=== PATIENT | female | born 1990 | race Caucasian/White ===

== ENCOUNTER 2017-04-14 08:04 | Inpatient (IN) | payer OTHER ==
[~2017-04-14] VITALS: Ht 175.3 cm; Wt 136.1 kg
--- NOTE | ~2017-04-14 | PN ---
Unit #: [id number] #: [id number] Patient: DANIELLA BRANDON [id number] [facility] [address] [place] [address] [id number] Efren MR#: [id number] NAME: DANIELLA BRANDON. ROOM: [facility] Age: 27 Sex: F Admission Date: 04/14/2017 : 1990 Attending Physician: Tam Sesay M.D. Admitting Physician: Tam Sesay M.D. Primary Care Physician: Kiley Leonard PROGRESS NOTES DATE 04/15/2017 DISCUSSION The patient remains dysphoric and flat and continues to endorse helplessness and suicidal ideation. She states that she will be essentially homeless upon discharge from the hospital. I have spoken with the patient regarding realistic expectations of inpatient care particularly regarding realistic expectations of what this facility can and cannot provide with regards to assistance with disposition. We continue current medications and will attempt to transfer the patient to the [address] [place] [address] unit if possible. Dictated by... Tam Sesay M.D. CB/oz TD: 04/15/2017 15:09 JOB #: [id number] [facility] PROGRESS NOTES Page 1 of 1 X Tam Sesay MD X PROGRESS NOTE
--- NOTE | ~2017-04-14 | PN ---
Unit #: [id number] #: [id number] Patient: DANIELLA BRANDON [id number] [facility] [address] [place] [address] [id number] Efren MR#: [id number] NAME: DANIELLA BRANDON. ROOM: 63 Age: 27 Sex: F Admission Date: 04/14/2017 : 1990 Attending Physician: Tam Sesay M.D. Admitting Physician: Tam Sesay M.D. Primary Care Physician: Kiley Leonard PROGRESS NOTES DATE 04/17/2017 DISCUSSION The patient has tolerated initiation of Abilify without complaint. She remains dysphoric and continues to endorse positive suicidal ideation and hopeless when seen today. I have spoken with the patient today regarding her need to increase her participation within the therapeutic milieu to this then she agrees to attend a sabianist service later today. Dictated by... Tam Sesay M.D. CB/leticia TD: 04/17/2017 22:13 JOB #: [id number] [facility] PROGRESS NOTES Page 1 of 1 X Tam Sesay MD X PROGRESS NOTE
--- NOTE | ~2017-04-14 | PN ---
Unit #: [id number] #: [id number] Patient: DANIELLA BRANDON [id number] [facility] [address] [place] [address] [id number] I MR#: [id number] NAME: DANIELLA BRANDON ROOM: 63 Age: 27 Sex: F Admission Date: 04/14/2017 : 1990 Attending Physician: Tam Sesay M.D. Admitting Physician: Tam Sesay M.D. Primary Care Physician: Kiley Leonard PROGRESS NOTES DATE 04/19/2017 DISCUSSION The patient is a bit brighter today. She is active within the therapeutic milieu and is reporting reduction in suicidal ideation. We have discussed a realistic expectations of inpatient care. Dictated by... Baldomero Davalos TD: 04/19/2017 12:42 JOB #: [id number] [facility] PROGRESS NOTES Page 1 of 1 X Tam Sesay MD X PROGRESS NOTE
--- NOTE | ~2017-04-14 | PA ---
Unit #: [id number] #: [id number] Patient: DANIELLA BRANDON [id number] [place] [address] [id number] I MR#: [id number] NAME: DANIELLA BRANDON ROOM: [facility] Age: 27 Sex: F Admission Date: 04/14/2017 : 1990 Date of Assessment: 04/14/2017 Attending Physician: Tam Sesay M.D. Admitting Physician: Tam Sesay M.D. Primary Care Physician: Tony Adair D.O. PSYCHIATRIC ASSESSMENT IDENTIFYING INFORMATION The patient is a 27-year-old white female admitted in transfer from [facility] after the patient had reportedly taken an overdose. CHIEF COMPLAINT None given. INFORMANT Patient, reliability is fair. HISTORY OF PRESENT ILLNESS The patient is a 27-year-old white female who reports that she was just discharged from [facility] 2 days prior to this admission. The patient reports that she had taken an overdose of 800 mg ibuprofen that was in a suicide attempt. The patient reports no specific stressor which led to this episode. The patient states that she lives with a roommate at [facility] [place]. She is not presently employed. The patient is originally from [place] but came to [place] at the age of 18 to enter the [employer] Program in [place]. She has remained in the [place] area since and has little contact with her family at this point. The patient reports that she is followed at [facility], and her current medications include Zoloft, Topamax, Doxepin, and Trileptal. The patient today continues to endorse hopelessness and suicidal ideation. She denies any homicidal ideation. She denies any psychotic symptoms. She denies any history of substance abuse related issues. PAST PSYCHIATRIC HISTORY As above. The patient has a history of multiple previous psychiatric hospitalizations the last of which ended on Tuesday of this week. PAST MEDICAL HISTORY This patient is morbidly obese and suffers from asthma. MEDICATIONS Albuterol, Trileptal, doxepin, Topamax, and Zoloft. ALLERGIES None. FAMILY HISTORY The patient's father who is an alcoholic was a "paranoid schizophrenic." SOCIAL HISTORY Unit #: [id number] #: [id number] Patient: DANIELLA BRANDON The patient lives with a roommate. She is not presently employed. She reports no use of psychoactive substances. MENTAL STATUS EXAMINATION Examination at this time reveals the patient to be a morbidly obese somewhat masculine-appearing female appearing her stated age. She is in no apparent physical distress at the time of examination. She is awake, alert, and oriented in all spheres. Her mood is dysphoric, her affect blunted. Speech is generally well-coherent. There are no gross deficits in memory or cognition noted. Intelligence is judged to be in the average range based on fund of knowledge. The patient is cooperative throughout the interview. She is currently endorsing positive suicidal ideation. She denies homicidal ideation. She denies any psychotic symptoms. Her judgment and insight appear to be somewhat impaired. ASSETS AND LIABILITIES The patient's assets are to be assessed. Liabilities: Lack of resources. DIAGNOSTIC IMPRESSION 1. Dysthymic disorder. 2. Borderline personality disorder. 3. Morbid obesity. 4. Asthma. TREATMENT PLAN The patient remains hospitalized for safety and stabilization. We will continue previously prescribed medications, and we will consider possible augmentation strategies. Given the patient's recent overdose, I will not introduce any new medications as she is quite groggy at this point. Additional medications to be considered would be second-generation antipsychotic. Doxepin would be discontinued given the patient's propensity for overdose and the dangerousness of Tricyclic Antidepressants and such episodes. ESTIMATED LENGTH OF STAY 5 to 7 days. Dictated by... Tam Sesay M.D. ANDREA/damaris TD: 04/14/2017 14:37 JOB #: [id number] PSYCHIATRIC ASSESSMENT Page 1 of 1 X Tam Sesay MD X PSYCHIATRIC ASSESSMENT
--- NOTE | ~2017-04-14 | HP ---
Unit #: [id number] #: [id number] Patient: DANIELLA BRANDON [id number] [place] [address] [id number] I MR#: [id number] NAME: DANIELLA BRANDON. ROOM: P122 Age: 27 Sex: F Admission Date: 04/14/2017 : 1990 Attending Physician: Tam Sesay M.D. Admitting Physician: Tam Sesay M.D. Primary Care Physician: Tony Adair D.O. HISTORY AND PHYSICAL HISTORY OF PRESENT ILLNESS Daniella is a 27 year old admitted to [address] [place] [address] with depression and after an overdose of ibuprofen. She was charcoaled in a local emergency room and when medically stable transferred to [facility] for psychiatric care. PAST MEDICAL HISTORY 1. Morbid obesity. 2. Asthma. 3. Obstructive sleep apnea. PAST SURGICAL HISTORY Nothing reported. ALLERGIES No known drug allergies. SOCIAL HISTORY Smokes less than 1 pack per day. Denies alcohol and illicit drug use. FAMILY HISTORY Medically noncontributory. REVIEW OF SYSTEMS CONSTITUTIONAL: No fever or chills. HEENT: Denies any sore throat, ear pain or runny nose. CARDIOVASCULAR: Denies chest pain, irregular heart rhythm or palpitations. CHEST: Denies shortness of breath or cough. No hemoptysis. GASTROINTESTINAL: Denies nausea, vomiting, diarrhea or chronic constipation. ENDOCRINE: Denies history of increased thirst or urination. No recent significant weight loss or gain. GENITOURINARY: Denies dysuria, frequency, or hematuria. SKIN: Denies any rashes. HEMATOLOGIC: Denies history of increased bleeding or bruising. MUSCULOSKELETAL: Denies any hot, swollen joints. No generalized muscle pain. NEUROLOGIC: Denies problems with vision or speech. No frequent, severe headaches. No numbness, tingling or weakness in any extremities. Denies loss of bladder or bowel control. CURRENT MEDICATIONS 1. Topamax 100 mg q.h.s. 2. Zoloft 100 mg q.h.s. Unit #: [id number] #: [id number] Patient: DANIELLA BRANDON 3. Trileptal 150 mg b.i.d. 4. Proventil inhaler p.r.n. 5. Milk of Magnesia p.r.n. 6. Maalox p.r.n. 7. Tylenol p.r.n. PHYSICAL EXAMINATION GENERAL: Alert, morbidly obese, in no apparent distress. VITAL SIGNS: Blood pressure 134/82, heart rate 100, respirations 16, temperature 98.6. WEIGHT: 300. HEIGHT: 5 feet 9 inches. SKIN: Warm and dry without rash or lesion. HEENT: Normocephalic. TMs not viewed. Oral and nasal passages clear. Conjunctivae clear. PERRLA. EOMs intact. NECK: Supple without lymphadenopathy or thyromegaly. HEART: Regular rate and rhythm without murmur. LUNGS: Clear. ABDOMEN: Soft, nontender. : Not done. EXTREMITIES: No evidence of cyanosis, clubbing or edema. Moves all without focal deficit. NEUROLOGICAL: Grossly within normal limits. Cranial Nerves: II: Visual guthrie are intact. III, IV AND : Extraocular movements are intact. Pupils are equal, round and reactive to light. V: Facial sensation is grossly normal. VII: Facial movements and expression are normal. VIII: Auditory acuity grossly intact. IX, X: Uvula is midline. Phonation is normal. XI: Patient shrugs shoulders and turns head normally. XII: Tongue protrudes in the midline. Sensory and Motor Function: Sensory and motor sensation is grossly normal. Motor: moves all extremities well. Coordination: Gait is normal. Deep Tendon Reflexes: Intact. IMPRESSION Psychiatric admission. RECOMMENDATIONS PSYCHIATRIC: Per psychiatrist. MEDICAL: See no contraindication to participate in facility's activities. MEDICAL PROGNOSIS Good. MEDICAL CONDITION Stable. Dictated by... Erika Herring P.A.-C. for Baldomero Redman/oz TD: 04/14/2017 15:52 JOB #: [id number] Unit #: [id number] #: [id number] Patient: DANIELLA BRANDON HISTORY AND PHYSICAL Page 1 of 1 X Erika Herring HISTORY AND PHYSICAL
--- NOTE | ~2017-04-14 | PN ---
Unit #: [id number] #: [id number] Patient: DANIELLA BRANDON [id number] [facility] [address] [place] [address] [id number] Efren MR#: [id number] NAME: DANIELLA BRANDON ROOM: 63 Age: 27 Sex: F Admission Date: 04/14/2017 : 1990 Attending Physician: Tam Sesay M.D. Admitting Physician: Tam Sesay M.D. Primary Care Physician: Kiley Leonard PROGRESS NOTES DATE 04/18/2017 DISCUSSION The patient is seclusive to room and remains dysphoric when seen today. She continues to endorse positive suicidal ideation but states "I hope this new pill will work" (the Abilify). I have encouraged the patient continue interactive participation of programming (1)____ attempted to gently redirect her expectations of inpatient care. Dictated by... Tam Sesay M.D. CB/leticia TD: 04/19/2017 02:10 JOB #: [id number] [facility] PROGRESS NOTES Page 1 of 1 X Tam Sesay MD X PROGRESS NOTE
--- NOTE | ~2017-04-14 | DS ---
Unit #: [id number] #: [id number] Patient: DANIELLA BRANDON [id number] [place] [address] [id number] I MR#: [id number] NAME: DANIELLA BRANDON. ROOM: P263 Age: 27 Sex: F Admission Date: 04/14/2017 : 1990 Discharge Date: 04/20/2017 Attending Physician: Tam Sesay M.D. Primary Care Physician: Tony Adair D.O. DISCHARGE SUMMARY REASON FOR ADMISSION The patient is a 27-year-old white female, admitted to the [facility] with increasing depression and suicidal ideation. HOSPITAL COURSE The patient was admitted to the [facility] unit and placed on suicide precautions. Home medications including Zoloft, Topamax, and Trileptal were continued. The patient was begun on Abilify with dosage titration to 5 mg daily. She seemed to tolerate this medication well and showed significant improvement in mood and suicidal thinking. By 04/20/2017, the patient was in bright spirits and requested discharge and it was so ordered. FINAL DIAGNOSES Dysthymic disorder, borderline personality disorder, morbid obesity, and asthma. DISPOSITION ON DISCHARGE The patient is discharged on the following medications: Zoloft 100 mg daily for depression, Topamax 100 mg at h.s. for mood stabilization, Trileptal 150 mg b.i.d. for mood stabilization, Abilify 2 mg daily for mood stabilization, Vistaril 50 mg q.6 hours p.r.n. anxiety, and Proventil HFA 2 puffs q.4 hours p.r.n. shortness of air. DIET AND ACTIVITY No dietary or physical restrictions were placed upon the patient at the time of discharge. FOLLOWUP She will follow up through the auspices of [facility]. PROGNOSIS Her prognosis is considered fair. She was informed of the risks and benefits of the medications ordered including the possible risks of tardive dyskinesia with long-term use of antipsychotic medication such as Abilify and she is likewise apprised of FDA mandated warnings regarding the effects of atypical antipsychotics on the metabolism of lipids and glucose. Dictated by... Tam Sesay M.D. Unit #: [id number] #: [id number] Patient: DANIELLA BRANDON ANDREA/ping TD: 04/20/2017 13:37 JOB #: [id number] DISCHARGE SUMMARY Page 1 of 1 X Tam Sesay MD X DISCHARGE SUMMARY
--- NOTE | ~2017-04-14 | PN ---
Unit #: [id number] #: [id number] Patient: DANIELLA BRANDON [id number] [facility] [address] [place] [address] [id number] I MR#: [id number] NAME: DANIELLA BRANDON ROOM: 63 Age: 27 Sex: F Admission Date: 04/14/2017 : 1990 Attending Physician: Tam Sesay M.D. Admitting Physician: Tam Sesay M.D. Primary Care Physician: Kiley Leonard PROGRESS NOTES DATE 04/16/2017 DISCUSSION The patient remains dysphoric, flat, and continues to endorse positive suicidal ideation. We continue current treatment. I have spoken with the patient today regarding realistic expectations of inpatient care. Dictated by... Tam Sesay M.D. ANDREA/damaris TD: 04/16/2017 12:17 JOB #: [id number] [facility] PROGRESS NOTES Page 1 of 1 X Tam Sesay MD X PROGRESS NOTE
== END 2017-04-20 15:30 | disposition home or self-care (01) | DRG 881 ==
LOC: P2L 10:28 → P1S 10:28 → P2L 04-15 17:44
DX: F34.1 Dysthymic disorder (principal); Z68.41 Body mass index [BMI] 40.0-44.9, adult; F60.3 Borderline personality disorder; E66.01 Morbid (severe) obesity due to excess calories; J45.909 Unspecified asthma, uncomplicated; G47.33 Obstructive sleep apnea (adult) (pediatric); F17.210 Nicotine dependence, cigarettes, uncomplicated

== ENCOUNTER 2017-04-25 22:26 | Inpatient (IN) | payer OTHER ==
[~2017-04-25] VITALS: Ht 175.3 cm; Wt 136.1 kg
--- NOTE | ~2017-04-25 | PA ---
Unit #: [id number] #: [id number] Patient: DANIELLA BRANDON [id number] [facility] [address] [place] [address] [id number] I MR#: [id number] NAME: DANIELLA BRANDON. ROOM: P252 Age: 27 Sex: F Admission Date: 04/26/2017 : 1990 Date of Assessment: 04/26/2017 Attending Physician: Tam Sesay M.D. Admitting Physician: Tam Sesay M.D. Primary Care Physician: Tony Adair D.O. PSYCHIATRIC ASSESSMENT IDENTIFYING INFORMATION The patient is a 27-year-old white female admitted to the [facility] after presenting to this facility claiming to be suicidal. CHIEF COMPLAINT None given. INFORMANT Patient, reliability is fair. HISTORY OF PRESENT ILLNESS The patient is a 27-year-old white female last discharged from this facility on 04/20/2017. It was recommended to the patient that she attend the intensive outpatient program upon her discharge from this facility, but she chose not to do so. The patient states that yesterday she was "at the recreation center" that she attends through the auspices of [facility] and made a statement of suicidality to her therapist there. It was recommended that she seek hospitalization, and the patient went to [facility] but became angry and had to be escorted from that facility by police. She then came to this facility claiming to be suicidal with plan to overdose. When seen today, the patient reports no specific stressor but continues to lament her living situation with a roommate. She is presently unemployed and is on a host of psychotropic medications through the auspices of [facility]. The patient continues to endorse positive suicidal ideation when seen today. She denies homicidal ideation. For more complete history of present illness, please refer to previously dictated notes. PAST PSYCHIATRIC HISTORY Reviewed, no changes. PAST MEDICAL HISTORY Reviewed, no changes. MEDICATIONS Zoloft, Topamax, Trileptal, Abilify, Vistaril, and Proventil. ALLERGIES Lactose intolerant. FAMILY HISTORY Reviewed, no changes. Unit #: [id number] #: [id number] Patient: BRANDON,DANIELLA E SOCIAL HISTORY Reviewed, no changes. MENTAL STATUS EXAMINATION Examination at this time reveals the patient to be a morbidly obese white female appearing her stated age. She is in no apparent physical distress at the time of examination. She is awake, alert, and oriented in all spheres. Her mood is dysphoric, her affect blunted. Speech is generally well coherent. There are no gross deficits in memory or cognition noted. Intelligence is judged to be in the average range based on fund of knowledge. The patient is cooperative throughout the interview. She is currently endorsing positive suicidal ideation with plan to overdose or slit her throat. She denies homicidal ideation. She denies any psychotic symptoms. Her judgment and insight appear to be somewhat impaired. ASSETS AND LIABILITIES The patient's assets are to be assessed. Liabilities: Profound characterologic pathology, lack of resources, and supportive community. DIAGNOSTIC IMPRESSION 1. Bipolar disorder, depressed phase. 2. Borderline personality disorder. 3. Morbid obesity. 4. Asthma. TREATMENT PLAN The patient remains hospitalized for safety and stabilization. I will increased the patient's Abilify dose to 5 mg daily in hopes of addressing symptoms, and I have spoken with the patient today frankly regarding realistic expectations of inpatient care. ESTIMATED LENGTH OF STAY 3 to 5 days. Dictated by... Tam Sesay M.D. Makenna TD: 04/26/2017 13:06 JOB #: [id number] PSYCHIATRIC ASSESSMENT Page 1 of 1 X Tam Sesay MD X PSYCHIATRIC ASSESSMENT
--- NOTE | ~2017-04-25 | DS ---
Unit #: [id number] #: [id number] Patient: DANIELLA BRANDON [id number] [place] [address] [id number] I MR#: [id number] NAME: DANIELLA BRANDON. ROOM: P252 Age: 27 Sex: F Admission Date: 04/26/2017 : 1990 Discharge Date: 04/28/2017 Attending Physician: Tam Sesay M.D. Primary Care Physician: Tony Adair D.O. DISCHARGE SUMMARY REASON FOR ADMISSION The patient is a 27-year-old white female, admitted to the [facility] after again presenting to this facility claiming to be suicidal. HOSPITAL COURSE The patient was admitted to the [facility] unit and placed on suicide precautions. She was continued on Abilify with dosage increased to 5 mg daily. Other medications were continued. The patient was gently, but firmly confronted regarding her frequent hospital stays, having been admitted 5 times in the past 4 weeks. She did deny suicidal ideation on 04/28/2017 and requested discharge. It was so ordered. FINAL DIAGNOSES Bipolar disorder, most recent episode depressed; borderline personality disorder, severe; morbid obesity; asthma. DISPOSITION ON DISCHARGE The patient is discharged on the following medications: Abilify 5 mg daily for mood stabilization, Proventil HFA 2 puffs q.4 hours p.r.n. shortness of air, Vistaril 25 mg q.6 hours p.r.n. anxiety, Trileptal 150 mg b.i.d. for mood stabilization, Topamax 100 mg at bedtime for migraine headache, and Zoloft 100 mg daily for depression. DISCHARGE INSTRUCTIONS No dietary or physical restrictions were placed on the patient at the time of discharge. FOLLOWUP Followup will take place through the auspices of [facility] mental health resources, specifically [facility]. PROGNOSIS Her prognosis remains somewhat guarded, given the profundity of her access to pathology and lack of support and resources. Dictated by... Tam Sesay M.D. ANDREA/ping TD: 04/28/2017 15:39 JOB #: [id number] Unit #: [id number] #: [id number] Patient: DANIELLA BRANDON E DISCHARGE SUMMARY Page 1 of 1 X Tam Sesay MD X DISCHARGE SUMMARY
--- NOTE | ~2017-04-25 | HP ---
Unit #: [id number] #: [id number] Patient: DANIELLA BRANDON [id number] [place] [address] [id number] MR#: [id number] NAME: DANIELLA BRANDON ROOM: P252 Age: 27 Sex: F Admission Date: 04/26/2017 : 1990 Attending Physician: Tam Sesay M.D. Admitting Physician: Tam Sesay M.D. Primary Care Physician: Tony Adair D.O. HISTORY AND PHYSICAL HISTORY OF PRESENT ILLNESS Daniella is a 27 year old admitted to [address] [place] [address] with depression verbalizing wanting to hurt herself. She was just discharged from this facility. The patient was seen and H and P dated 04/14/2017 was reviewed. This is current. No changes. Please see H and P dated 04/14/2017. Dictated by... Eddy ArnoldAFlavio. for Baldomero Redman/damaris TD: 04/27/2017 13:49 JOB #: [id number] HISTORY AND PHYSICAL Page 1 of 1 X Erika Herring HISTORY AND PHYSICAL
--- NOTE | ~2017-04-25 | PN ---
Unit #: [id number] #: [id number] Patient: DANIELLA BRANDON [id number] [facility] [address] [place] [address] [id number] I MR#: [id number] NAME: DANIELLA BRANDON ROOM: P252 Age: 27 Sex: F Admission Date: 04/26/2017 : 1990 Attending Physician: Tam Sesay M.D. Admitting Physician: Tam Sesay M.D. Primary Care Physician: Kiley Leonard PROGRESS NOTES DATE 04/27/2017 DISCUSSION This physician has learned that the patient has been admitted 5 times psychiatrically in the past 30 days. It is clear that she is "hospital shopping" today. The patient today reports that she is experiencing visual hallucinations. I have gently but firmly confronted the patient with the fact that it is highly unlikely that she is experiencing actual visual hallucinations given the rarity of these as a psychiatric symptom. I have attempted again to redirect the patient's expectations of inpatient care during today's interview. Suicide precautions remain in place as the patient continues to claim suicidality and in virtually the same breath requests large food portions. Dictated by... Tam Sesay M.D. CB/bzg TD: 04/27/2017 13:27 JOB #: [id number] [facility] PROGRESS NOTES Page 1 of 1 X Tam Sesay MD X PROGRESS NOTE
[2017-04-26 09:46] LABS: BASOPHIL% 0.5 % (0-2.5); EOSINOPHIL# 0.5 X10e3 (0-0.7); EOSINOPHIL% 6.1 % (0.0-7.0); HEMATOCRIT 36.7 % (35.0-45.0); HEMOGLOBIN 11.9 gm/dL (12.0-16.0); LYMPHOCYTE% 25.5 % (17.0-45.0); MEAN CELL VOLUME 86.4 FL (83-96); MEAN CORPUSCULAR HEMOGLOBIN 28.1 PG (28-34); MEAN CORPUSCULAR HGB CONC 32.5 g/dL (30-36); MEAN PLATELET VOLUME 7.9 FL (6.5-11.5); MONOCYTE# 0.8 X10e3 (0-1.0); MONOCYTE% 10.1 % (3.0-12.0); NEUTROPHIL# 4.6 X10e3 (1.5-7.1); NEUTROPHIL% 57.8 % (40-75); PLATELET COUNT 290 X10e3 (140-420); RED BLOOD COUNT 4.24 X10e (3.90-5.30); RED CELL DISTRIBUTION WIDTH 15.8 % (11.0-15.5)
[2017-04-26 09:48] LABS: DIFF IND NO
[2017-04-26 10:07] LABS: ALBUMIN SERUM 3.6 g/dL (3.5-5.0); BILIRUBIN,TOTAL 0.4 mg/dL (0.2-2.0); BUN/CREATININE RATIO 18.57; CALCIUM SERUM 8.6 mg/dL (8.4-10.2); CREATININE SERUM 0.7 mg/dL (0.6-1.4); GLOM FILT RATE Estimated 120.4 mL/min (>60); POTASSIUM 3.8 mmol/L (3.5-5.1)
== END 2017-04-28 16:20 | disposition home or self-care (01) | DRG 885 ==
LOC: P2L 04-26 03:33
PROVIDERS: Specialist
DX: F31.9 Bipolar disorder, unspecified (principal); Z68.41 Body mass index [BMI] 40.0-44.9, adult; E66.01 Morbid (severe) obesity due to excess calories; F60.3 Borderline personality disorder; J45.909 Unspecified asthma, uncomplicated
CPT/HCPCS: 80053; 84703; 85025

== ENCOUNTER 2017-04-29 22:11 | Inpatient (IN) | payer OTHER ==
[~2017-04-29] VITALS: Ht 175.3 cm; Wt 136.1 kg
--- NOTE | ~2017-04-29 | HP ---
Unit #: [id number] #: [id number] Patient: DANIELLA BRANDON [id number] [place] [address] [id number] I MR#: [id number] NAME: DANIELLA BRANDON ROOM: 32 Age: 27 Sex: F Admission Date: 04/30/2017 : 1990 Attending Physician: Tam Sesay M.D. Admitting Physician: Tam Sesay M.D. Primary Care Physician: Tony Adair D.O. HISTORY AND PHYSICAL The patient is a 27 year old female admitted to [address] [place] [address] on 04/30/2017 for suicide attempt. Patient had a recent admission on 04/14/2017 where a full history and physical was completed. That history and physical has been reviewed. No changes need to be made. Dictated by... Charli Mcguire/oz TD: 04/30/2017 15:05 JOB #: [id number] HISTORY AND PHYSICAL Page 1 of 1 X LAURA MACHUCA APRN HISTORY AND PHYSICAL
--- NOTE | ~2017-04-29 | EKG ---
PATIENT: DANIELLA BRANDON UNIT #: [id number] Ventricular Rate: 95 BPM Atrial Rate: 95 BPM P-R Interval: 176 ms QRS Duration: 106 ms Q-T Interval: 388 ms QTC Calculation(Bezet): 487 ms P Troy: 25 degrees Calculated R Troy: 28 degrees Calculated T Troy: 35 degrees Diagnosis Line: Normal sinus rhythm Diagnosis Line: Prolonged QT Diagnosis Line: Abnormal ECG Diagnosis Line: No previous ECGs available Diagnosis Line: Confirmed by CONSUELO POWELL MD ([id number]) on 05/02/2017 Diagnosis Line: 10:12:25 PM INTERPRETING MD: ANDRE KENT
--- NOTE | ~2017-04-29 | DS ---
Unit #: [id number] #: [id number] Patient: DANIELLA BRANDON [id number] [place] [address] [id number] I MR#: [id number] NAME: DANIELLA BRANDON. ROOM: [facility] Age: 27 Sex: F Admission Date: 04/30/2017 : 1990 Discharge Date: 05/02/2017 Attending Physician: Tam Seasy M.D. Primary Care Physician: Tony Adair D.O. DISCHARGE SUMMARY REASON FOR ADMISSION The patient is a 27-year-old white female, with severe borderline personality disorder, readmitted to the [address] [place] [address] claiming to be suicidal. HOSPITAL COURSE The patient was admitted to the [address] [place] [address] given threats made, admission was placed on room lockout precautions from 6:00 a.m. to 10:00 p.m., on a couple of occasions the patient required oxygen after having received p.r.n. Geodon and because she had for gotten her home CPAP machine, but otherwise her stay in the hospital was a fairly uneventful one. By 05/02/2017, the patient was denying suicidal ideation and discharge was ordered. FINAL DIAGNOSES Dysthymic disorder; borderline personality disorder, severe; morbid obesity; asthma; obstructive sleep apnea. DISPOSITION ON DISCHARGE The patient is discharged on the following medications; Zyrtec 10 mg daily for environmental allergies, Ventolin HFA 2 puffs q.4 hours p.r.n. shortness of air, doxycycline 100 mg b.i.d. for 14 days, reason unknown, fluconazole 150 mg x1 for yeast infection, Symbicort 80 mcg two puffs b.i.d. for shortness of air, fluticasone 50 mcg daily for environmental allergies. DISCHARGE INSTRUCTIONS No dietary or physical restrictions were placed upon the patient at the time of discharge. FOLLOWUP Followup will take place through the auspices of [facility] mental health resources. The patient will follow up through the auspices of [facility]. PROGNOSIS Her prognosis remains guarded given the profundity of her access to pathology. Dictated by... Tam Sesay M.D. CB/modl Unit #: [id number] #: [id number] Patient: DANIELLA BRANDON TD: 05/03/2017 03:12 JOB #: [id number] DISCHARGE SUMMARY Page 1 of 1 X Tam Sesay MD DISCHARGE SUMMARY
--- NOTE | ~2017-04-29 | PN ---
Unit #: [id number] #: [id number] Patient: DANIELLA BRANDON [id number] [facility] [address] [place] [address] [id number] I MR#: [id number] NAME: DANIELLA BRANDON ROOM: 32 Age: 27 Sex: F Admission Date: 04/30/2017 : 1990 Attending Physician: Tam Sesay M.D. Admitting Physician: Tam Sesay M.D. Primary Care Physician: Kiley Leonard PROGRESS NOTES DATE 05/01/2017 DISCUSSION The patient is sleeping soundly in the dayroom after having a required p.r.n. Haldol, Benadryl and Ativan last evening because her oxygen sats have dropped. She is now requiring oxygen while on view of staff. We continue current treatment. Dictated by... Tam Sesay M.D. CB/leticia TD: 05/01/2017 22:59 JOB #: [id number] DORITA PROGRESS NOTES Page 1 of 1 X Tam Sesay MD X PROGRESS NOTE
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
== END 2017-05-02 14:20 | disposition home or self-care (01) | DRG 881 ==
LOC: P1S 04-30 00:52
DX: F34.1 Dysthymic disorder (principal); Z68.41 Body mass index [BMI] 40.0-44.9, adult; E66.01 Morbid (severe) obesity due to excess calories; F60.3 Borderline personality disorder; J45.909 Unspecified asthma, uncomplicated; Z91.5 Personal history of self-harm; G47.33 Obstructive sleep apnea (adult) (pediatric)
CPT/HCPCS: 93005; J1200; J1630; J2060

== ENCOUNTER 2017-05-16 18:45 | Inpatient (IN) | payer OTHER ==
--- NOTE | ~2017-05-16 | DS ---
Unit #: [id number] #: [id number] Patient: DANIELLA BRANDON [id number] [place] [address] [id number] MR#: [id number] NAME: DANIELLA BRANDON. ROOM: [facility] Age: 27 Sex: F Admission Date: 05/17/2017 : 1990 Discharge Date: 05/17/2017 Attending Physician: Tam Sesay M.D. Primary Care Physician: Tony Adair D.O. DISCHARGE SUMMARY REASON FOR ADMISSION The patient is a 27-year-old white female admitted to the [address] [place] [address] Unit after she presented to [facility] claiming to be suicidal. HOSPITAL COURSE The patient was admitted to the [address] [place] [address] Unit and placed on room lockout precautions. In the early afternoon of 05/17, the patient was observed by this physician to be jovially interacting with a peer prior to her becoming aware that she was under the observation of this physician. When gently but firmly confronted with the fact that she had been found to be laughing and joking with a peer which seemed high incongruent with her claims of suicidal ideation, the patient did in fact admit that she was not having suicidal thoughts and was agreeable with a plan for discharge from the hospital having been gently but firmly confronted with a recent "hospital shopping" behavior. Discharge was ordered. FINAL DIAGNOSES 1. Dysthymic disorder. 2. Borderline personality disorder. 3. Malingering. 4. Morbid obesity. 5. Environmental allergies. DISPOSITION ON DISCHARGE This physician will prescribe no psychotropic medications. The patient will recommend that she follow through the auspices of [facility] and other community mental health resources. Dictated by... Tam Sesay M.D. CB/damaris TD: 05/18/2017 11:59 JOB #: [id number] Unit #: [id number] #: [id number] Patient: DANIELLA BRANDON DISCHARGE SUMMARY Page 1 of 1 X Tam Sesay MD X DISCHARGE SUMMARY
--- NOTE | ~2017-05-16 | HP ---
Unit #: [id number] #: [id number] Patient: DANIELLA BRANDON [id number] [place] [address] [id number] I MR#: [id number] NAME: DANIELLA BRANDON ROOM: P251 Age: 27 Sex: F Admission Date: 05/17/2017 : 1990 Attending Physician: Tam Sesay M.D. Admitting Physician: Tam Sesay M.D. Primary Care Physician: Tony Adair D.O. HISTORY AND PHYSICAL Daniella is a 27 year old who was admitted and discharged within the first 24 hours. She was not seen for an H and P. Dictated by... Erika Herring P.A.-C. for Valentin Baer M.D. JOSE/oz TD: 05/17/2017 18:36 JOB #: [id number] HISTORY AND PHYSICAL Page 1 of 1 X Erika Herring HISTORY AND PHYSICAL
--- NOTE | ~2017-05-16 | PA ---
Unit #: [id number] #: [id number] Patient: DANIELLA BRANDON [id number] [place] [address] [id number] I MR#: [id number] NAME: DANIELLA BRANDON. ROOM: P251 Age: 27 Sex: F Admission Date: 05/17/2017 : 1990 Date of Assessment: 05/17/2017 Attending Physician: Tam Sesay M.D. Admitting Physician: Tam Sesay M.D. Primary Care Physician: Tony Adair D.O. PSYCHIATRIC ASSESSMENT IDENTIFYING INFORMATION The patient is a 27-year-old white female admitted to the [address] [place] [address] Unit after presenting to [facility] claiming to be suicidal. CHIEF COMPLAINT None given. INFORMANT(S) Patient and chart, reliability good. HISTORY OF PRESENT ILLNESS The patient is a 27-year-old white female well known to this physician from multiple previous admissions to this facility the last of which ended on 05/02/2017. In the interim, the patient has presented to the [facility] Emergency Room on 2 occasions, and on both occasions has been discharged from the facility given this physician's familiarity with the patient's "hospital shopping." When seen today, the patient is denying suicidal ideation after having been gently confronted with the fact that she was seen jovially conversing with a peer on the unit shortly prior to initiation of interview with this physician. The patient has been prescribed medications and reports that she is active through the auspices of [facility]. At the time of her last discharge from this facility, this physician did not continue medications for the patient with the feeling that her primary pathology is characterologic in nature, and that there is no small degree of malingering present. For more complete history of present illness, please refer to previously dictated notes. PAST PSYCHIATRIC HISTORY Reviewed, no changes. PAST MEDICAL HISTORY Reviewed, no changes. MEDICATIONS Zyrtec, Ventolin, Symbicort, Fluticasone, Silvadene, Doxepin, Zoloft, and Topamax. ALLERGIES None reported. FAMILY HISTORY Reviewed, no changes. Unit #: [id number] #: [id number] Patient: DANIELLA BRANDON SOCIAL HISTORY Reviewed, no changes. MENTAL STATUS EXAMINATION Examination at this time reveals the patient to be a morbidly obese female appearing her stated age. She is in no apparent physical distress at the time of examination. She is awake, alert, and oriented in all spheres. Her mood is euthymic and tearful, her affect congruent. Speech is generally well coherent. There are no gross deficits in memory or cognition noted. Intelligence is judged to be in the low average range based on fund of knowledge. The patient is generally cooperative during interview. She denies current suicidal or homicidal ideation or psychotic features. Judgment and insight appear to be intact. ASSETS AND LIABILITIES The patient's assets are to be assessed. Liabilities: Lack of resources. Profound characterologic pathology. DIAGNOSTIC IMPRESSION 1. Dysthymic disorder. 2. Borderline personality disorder, severe. 3. Morbid obesity. 4. Environmental allergies. 5. Asthma. TREATMENT PLAN The patient will be discharged from the hospital given her denial of suicidal ideation and risk of hospital dependence. The complete details of the patient's discharge will be included in the discharge summary to be dictated shortly. Dictated by... Tam Sesay M.D. Makenna TD: 05/17/2017 14:13 JOB #: [id number] PSYCHIATRIC ASSESSMENT Page 1 of 1 X Tam Sesay MD PSYCHIATRIC ASSESSMENT
[2017-05-17 12:58] LABS: URINE APPEARANCE CLEAR; URINE BILIRUBIN NEG (NEG); URINE BLOOD NEG (NEG); URINE COLOR YELLOW; URINE GLUCOSE NEG (NEG); URINE KETONE NEG (NEG); URINE LEUKOCYTE ESTERASE TRACE (NEG); URINE NITRATE NEG (NEG); URINE PH 6.5 (5-8); URINE PROTEIN NEG (NEG); URINE SPECIFIC GRAVITY 1.017 (1.003-1.035); URINE UROBILINOGEN 0.2 MG/DL (NEG)
[2017-05-17 13:01] LABS: URINE BACTERIA AUWI NEG (NEGATIVE); URINE SQUAMOUS EPITHELIAL CELL OCC /[HPF]
[2017-05-17 13:17] LABS: AMPHETAMINE NEG (NEG); BARBITURATES NEG (NEG); BENZODIAZEPINES NEG (NEG); COCAINE NEG (NEG); MARIJUANA NEG (NEG); OPIATES NEG (NEG); TRICYCLIC ANTIDEPRESSANTS NEG (NEG); U METHADONE NEG (NEG)
== END 2017-05-17 16:43 | disposition home or self-care (01) | DRG 881 ==
LOC: P2L 05-17 02:10
PROVIDERS: Specialist
DX: F34.1 Dysthymic disorder (principal); Z68.41 Body mass index [BMI] 40.0-44.9, adult; E66.01 Morbid (severe) obesity due to excess calories; F60.3 Borderline personality disorder; J45.909 Unspecified asthma, uncomplicated; Z76.5 Malingerer [conscious simulation]
CPT/HCPCS: 80307; 81003